=== PATIENT | male | born 1985 | race Caucasian/White ===

== ENCOUNTER 2019-06-24 19:20 | Inpatient (IN) | payer OTHER ==
[2019-06-24 21:02] VITALS: BMI 25.7
--- NOTE | 2019-06-24 21:14 | HP ---
CIWA Score Nausea/Vomitin Muscle Tremors: 4-Moderate,w/Arms Extend Anxiety: 4-Mod. Anxious/Guarded Agitation: 4-Moderately Restless Paroxysmal Sweats: 3 Orientation: 2-Disoriented Date<2 days Tacttile Disturbances: 0-None Auditory Disturbances: 2-Mild Harshness/Frighten (starled with noises) Visual Disturbances: 3-Moderate Sensitivity (bright light) Headache: 0-None Present CIWA-Ar Total Score: 25 - Admission Criteria OASAS Guidelines: Admission for Medically Managed Detox: Requires at least one of the followin. CIWA greater than 12 2. Seizures within the past 24 hours 3. Delirium tremens within the past 24 hours 4. Hallucinations within the past 24 hours 5. Acute intervention needed for co occurring medical disorder 6. Acute intervention needed for co occurring psychiatric disorder 7. Severe withdrawal that cannot be handled at a lower level of care (continued vomiting, continued diarrhea, abnormal vital signs) requiring intravenous medication and/or fluids 8. Patient presents the following: Acute intervention needed for co-occurring med or psych disorder (seen in [facility] earlier today) Admission Criteria Met: Admission criteria met Admitting History and Physical - Smoking History Smoking history: Current every day smoker Have you smoked in the past 12 months: Yes Aproximately how many cigarettes per day: 10 Admission ROS [facility] - HPI Chief Complaint: HERE FOR ALCOHOL DETOX Allergies/Adverse Reactions: Allergies Allergy/AdvReac Type Severity Reaction Status Date / Time No Known Allergies Allergy Verified 06/24/19 21:03 History of Present Illness: 33 Y.O. MALE WITH ALCOHOLISM HERE FOR DETOX. CLIENT IS REFERRED BY [facility] AFTER PRESENTING THERE WITH INTOXICATION, N/V, WEAKNESS, PALPIATATION, SOB. HE HAS SINCE BEEN STABILIZED WITH LIBRIUM AND REFERRED. CLIENT REPORTS 1 -2 WEEK BINGES. STOPS FOR ABOUT 2/3 DAYS AND REPEATS. LAST DRINK EARLIER TODAY. 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 + BLACKOUTS, + SEIZURES- LAST EPISODE 2 MONTHS AGO. CLIENT REPORTS A RECENT CLEAN TIME OF 9 MONTHS RELAPSING 10 MONTHS AGO. DENIES SI/HI/AVH. HE REPORTS HIS IS ALSO AN ALCOHOLIC WELL. SO IT HARD FOR HIM TO STOP DRINKING. LIVE HOME WITH THE FAMILY, EMPLOYED, DENIES LEGALS Exam Limitations: No Limitations - Ebola screening Have you traveled outside of the country in the last 21 days: No (N) Have you had contact with anyone from an Ebola affected area: No Do you have a fever: No - Review of Systems Constitutional: Chills, Night Sweats, Changes in sleep, Weakness EENT: reports: Blurred Vision (GLASSES), Eye Pain (PRESSURE), Ear Pain (C/O POPPING AND PRESSURE IN THE R EAR), Nose Congestion, Sinus Pressure Respiratory: reports: Shortness of Breath Cardiac: reports: No Symptoms Reported GI: reports: Diarrhea, Nausea, Poor Fluid Intake, Vomiting : reports: No Symptoms Reported Musculoskeletal: reports: Back Pain (TAIL BONE- CHRONIC) Integumentary: reports: Rash (RASH ON HANDS-CHRONIC) Neuro: reports: Headache, Seizure Endocrine: reports: No Symptoms Reported Hematology: reports: No Symptoms Reported Psychiatric: reports: Anxious, Depressed Other Systems: Reviewed and Negative Patient History - Patient Medical History Hx Anemia: No Hx Asthma: Yes Hx Chronic Obstructive Pulmonary Disease (COPD): No Hx Cancer: No Hx Cardiac Disorders: Yes (DYSRHYTHMIA) Hx Congestive Heart Failure: No Hx Hypertension: No Hx Hypercholesterolemia: Yes Hx Pacemaker: No HX Cerebrovascular Accident: No Hx Seizures: Yes (R/T ALCOHOL 04/22/19) Hx Dementia: No Hx Diabetes: No Hx Gastrointestinal Disorders: No Hx Liver Disease: Yes Hx Genitourinary Disorders: No Hx Sexually Transmitted Disorders: No Hx Renal Disease (ESRD): No Hx Thyroid Disease: No Hx Human Immunodeficiency Virus (HIV): No Hx Hepatitis C: No Hx Depression: No Hx Suicide Attempt: No Hx Bipolar Disorder: No Hx Schizophrenia: No Other Medical History: DENIES - Patient Surgical History Past Surgical History: No - PPD History Previous Implant?: Yes Documented Results: Negative w/o proof Implanted On Prior R Admission?: No PPD to be Administered?: Yes - Smoking Cessation Smoking history: Current every day smoker Have you smoked in the past 12 months: Yes Aproximately how many cigarettes per day: 10 Cigars Per Day: 0 Hx Chewing Tobacco Use: No Initiated information on smoking cessation: Yes 'Breaking Loose' booklet given: 06/24/19 - Substance & Tx. History Hx Alcohol Use: Yes Hx Substance Use: Yes Substance Use Type: Alcohol Hx Substance Use Treatment: Yes ([facility]) - Substances abused Alcohol Substance route: Oral Frequency: 3-6 times per week Amount used: 1/2 GALLON VODKA Age of first use: 22 Date of last use: 06/24/19 Admission Physical Exam [facility] - Vital Signs Vital Signs: Vital Signs - 24 hr 06/24/19 20:49 Temperature 98.0 F Pulse Rate 101 H Respiratory 18 Rate Blood Pressure 150/100 - Physical General Appearance: Yes: Mild Distress, Tremorous (FELT), Sweating, Anxious HEENTM: Yes: EOMI, Normocephalic, Normal Voice, JAKE, Pharynx Normal, Nasal Congestion, Other (DISCOLORED TEETH) Respiratory: Yes: Chest Non-Tender, Lungs Clear, Normal Breath Sounds, No Respiratory Distress, No Accessory Muscle Use Neck: Yes: No masses,lesions,Nodules, Supple, Trachea in good position Breast: Yes: Breasts Symetrical Cardiology: Yes: Regular Rhythm, S1, S2, Tachycardia Abdominal: Yes: Normal Bowel Sounds, Non Tender, Soft Genitourinary: Yes: Within Normal Limits Back: Yes: Normal Inspection Musculoskeletal: Yes: full range of Motion, Gait Steady Neurological: Yes: Alert, Motor Strength 5/5, Depressed Affect Integumentary: Yes: Warm, Other (CHRONIC DERMATITIS OF HANDS) Lymphatic: Yes: Within Normal Limits - Diagnostic (1) Alcohol dependence with withdrawal, uncomplicated Current Visit: Yes Status: Acute (2) Nicotine dependence Current Visit: Yes Status: Chronic Qualifiers: Nicotine product type: cigarettes Substance use status: uncomplicated Qualified Code(s): F17.210 - Nicotine dependence, cigarettes, uncomplicated (3) Asthma Current Visit: Yes Status: Chronic Qualifiers: Asthma severity: mild Asthma persistence: intermittent Asthma complication type: uncomplicated Qualified Code(s): J45.20 - Mild intermittent asthma, uncomplicated (4) Depressed affect Current Visit: Yes Status: Acute (5) Alcohol-induced mood disorder Current Visit: Yes Status: Suspected (6) Chronic dermatitis of hands Current Visit: Yes Status: Chronic Cleared for Admission S - Detox or Rehab [facility] Level of Care: Medically Managed Detox Regimen/Protocol: Librium Claeared for Rehab Admission: No Breathalyzer - Breathalyzer Breathalyzer: 0 Urine Drug Screen - Test Device Lot number: [id number] Expiration date: 02/18/21 - Control Is test valid?: Yes - Results Drug screen NEGATIVE: No Urine drug screen results: BZO-Benzodiazepines Inpatient Rehab Admission - Rehab Decision to Admit Inpatient rehab admission?: No
[2019-06-24] MEDS ORDERED: chlordiazePOXIDE HCL 25 MG CAPSULE PO PRN (21:21)
[2019-06-24] MEDS ORDERED: BISMUTH SUBSALICYLATE 524 MG/30 ML UD PO PRN (21:21)
[2019-06-24] MEDS ORDERED: METHOCARBAMOL 500 MG TABLET PO PRN (21:21)
[2019-06-24] MEDS ORDERED: NICOTINE POLACRILEX 2 MG GUM BUC PRN (21:21)
[2019-06-24] MEDS ORDERED: MAG HYDROX/AL HYDROX/SIMETH 30 ML UNIT-DOSE CUP PO PRN (21:21)
[2019-06-24] MEDS ORDERED: guaiFENesin 200 MG/10 ML 10 ML UNIT-DOSE CUPS PO PRN (21:21)
[2019-06-24] MEDS ORDERED: ACETAMINOPHEN 325 MG TABLET (FP) PO PRN ×2 (21:21)
[2019-06-24] MEDS ORDERED: MENTHOL/PHENOL 1 EACH UD MM PRN (21:21)
[2019-06-24] MEDS ORDERED: DICYCLOMINE HCL 10 MG CAPSULE PO PRN (21:21)
[2019-06-24] MEDS ORDERED: hydrOXYzine PAMOATE 25 MG CAPSULE (FP) PO PRN (21:21)
[2019-06-24] MEDS ORDERED: MAGNESIUM CITRATE 300 ML BOTTLE PO PRN (21:21)
[2019-06-24] MEDS ORDERED: MAGNESIUM HYDROX 2400MG/30ML ORAL SUSPENSION 30 ML CUP PO PRN (21:21)
[2019-06-24] MEDS ORDERED: ONDANSETRON *ODT* 4 MG TABLET SL PRN (21:21)
[2019-06-24] MEDS ORDERED: P-EPHED 60MG/TRIPROLIDI 2.5MG TABLET PO PRN (21:21)
[2019-06-24] MEDS ORDERED: IBUPROFEN 400 MG TABLET (FP) PO PRN (21:21)
[2019-06-24] MEDS ORDERED: AMMONIUM LACTATE 12% LOTION 225 GM BOTTLE TP PRN (21:24)
[2019-06-24] MEDS: MELATONIN 5 MG TABLETS PO PRN (22:47)
[2019-06-24] MEDS: THIAMINE HCL 100 MG TABLET (FP) PO SCH (22:47)
[2019-06-24] MEDS: chlordiazePOXIDE HCL 25 MG CAPSULE PO SCH (22:47)
[2019-06-24] MEDS: TRIAMCINOLONE ACET 0.025% OINTMENT 15 GM TUBE TP SCH (22:57)
[2019-06-25] MEDS: chlordiazePOXIDE HCL 25 MG CAPSULE PO SCH ×4 (05:24→22:00)
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
[2019-06-25 09:56] LABS: HEMATOCRIT 42.7 % (35.4-49); HEMOGLOBIN 14.7 GM/dL (11.7-16.9); MCH 30.3 pg (25.7-33.7); MCHC 34.3 g/dl (32.0-35.9); MEAN CELL VOLUME 88.1 fl (80-96); MEAN PLT VOLUME 7.9 fl (7.5-11.1); PLATELET COUNT 289 K/MM3 (134-434); RBC 4.84 M/mm3 (4.00-5.60); RDW 12.7 % (11.9-15.9); WHITE BLOOD COUNT 7.4 K/mm3 (4.0-10.0)
[2019-06-25 10:12] LABS: ALBUMIN 3.7 g/dl (3.4-5.0); BLOOD UREA NITROGEN 13.7 mg/dL (7-18); CALCIUM 9.1 mg/dL (8.5-10.1); CREATININE 0.8 mg/dL (0.55-1.3); POTASSIUM 3.8 mmol/L (3.5-5.1)
[2019-06-25] MEDS: PRENATAL VITAMINS W/ FOLIC ACID TABLET (FP) PO SCH (10:26)
[2019-06-25] MEDS: NICOTINE 14 MG/24 HOURS TOPICAL PATCH TD SCH (10:28)
[2019-06-25] MEDS: TRIAMCINOLONE ACET 0.025% OINTMENT 15 GM TUBE TP SCH ×2 (10:50→22:01)
--- NOTE | 2019-06-25 13:25 | PN ---
S CIWA - CIWA Score Nausea/Vomitin Muscle Tremors: 4-Moderate,w/Arms Extend Anxiety: 4-Mod. Anxious/Guarded Agitation: 3 Paroxysmal Sweats: 2 Orientation: 2-Disoriented Date<2 days Tacttile Disturbances: 1-Very Mild Itch/Numbness Auditory Disturbances: 0-None Visual Disturbances: 0-None Headache: 2-Mild CIWA-Ar Total Score: 20 [facility] Progress Note (SOAP) Subjective: 33 years old male admitted on 06/24/19 for alcohol withdrawal sx management treated with librium detox regimen patient tolerated well ate breakfast tolerate food and fluid well no trouble chewing swallowing fiid Objective: 06/25/19 13:27 Vital Signs Temperature 98.2 F 06/25/19 13:16 Pulse Rate 108 H 06/25/19 13:16 Respiratory Rate 18 06/25/19 13:16 Blood Pressure 150/93 06/25/19 13:16 O2 Sat by Pulse Oximetry (%) Laboratory Last Values WBC 7.4 K/mm3 (4.0-10.0) 06/25/19 08:00 RBC 4.84 M/mm3 (4.00-5.60) 06/25/19 08:00 Hgb 14.7 GM/dL (11.7-16.9) 06/25/19 08:00 Hct 42.7 % (35.4-49) 06/25/19 08:00 MCV 88.1 fl (80-96) 06/25/19 08:00 MCH 30.3 pg (25.7-33.7) 06/25/19 08:00 MCHC 34.3 g/dl (32.0-35.9) 06/25/19 08:00 RDW 12.7 % (11.9-15.9) 06/25/19 08:00 Plt Count 289 K/MM3 (134-434) 06/25/19 08:00 MPV 7.9 fl (7.5-11.1) 06/25/19 08:00 Sodium 138 mmol/L (136-145) 06/25/19 08:00 Potassium 3.8 mmol/L (3.5-5.1) 06/25/19 08:00 Chloride 103 mmol/L (98-107) 06/25/19 08:00 Carbon Dioxide 28 mmol/L (21-32) 06/25/19 08:00 Anion Gap 7 MMOL/L (8-16) L 06/25/19 08:00 BUN 13.7 mg/dL (7-18) 06/25/19 08:00 Creatinine 0.8 mg/dL (0.55-1.3) 06/25/19 08:00 Est GFR (CKD-EPI)AfAm 136.99 06/25/19 08:00 Est GFR (CKD-EPI)NonAf 118.20 06/25/19 08:00 Random Glucose 137 mg/dL (74-106) H 06/25/19 08:00 Calcium 9.1 mg/dL (8.5-10.1) 06/25/19 08:00 Total Bilirubin 1.0 mg/dL (0.2-1) 06/25/19 08:00 AST 31 U/L (15-37) 06/25/19 08:00 ALT 44 U/L (13-61) 06/25/19 08:00 Alkaline Phosphatase 91 U/L (45-117) 06/25/19 08:00 Total Protein 7.0 g/dl (6.4-8.2) 06/25/19 08:00 Albumin 3.7 g/dl (3.4-5.0) 06/25/19 08:00 RPR Titer Nonreactive (NONREACTIVE) 06/25/19 08:00 HIV 1&2 Antibody Screen Negative 06/25/19 08:00 HIV P24 Antigen Negative 06/25/19 08:00 lab noted denies history of hypertension report bp elevation during withdrawal clonidine 0.1 mg po q6h prn for bp elevation 06/25/19 13:29 Assessment: 06/25/19 13:30 continue librium detox regimen Plan: alcohol withdrawal sx
[2019-06-25] MEDS ORDERED: cloNIDine HCL 0.1 MG TABLET PO PRN (13:28)
[2019-06-25] MEDS: THIAMINE HCL 100 MG TABLET (FP) PO SCH (22:00)
[2019-06-25] MEDS: MELATONIN 5 MG TABLETS PO PRN (22:00)
[2019-06-26] MEDS ORDERED: chlordiazePOXIDE HCL 25 MG CAPSULE PO SCH (05:00)
[2019-06-26] MEDS ORDERED: LORazepam 0.5 MG TABLET PO PRN (09:55)
--- NOTE | 2019-06-26 09:58 | PN ---
[facility] CIWA - CIWA Score Nausea/Vomitin-Mild Nausea/No Vomiting Muscle Tremors: 4-Moderate,w/Arms Extend Anxiety: 4-Mod. Anxious/Guarded Agitation: 3 Paroxysmal Sweats: 2 Orientation: 0-Oriented Tacttile Disturbances: 1-Very Mild Itch/Numbness Auditory Disturbances: 0-None Visual Disturbances: 0-None Headache: 0-None Present CIWA-Ar Total Score: 15 S Progress Note (SOAP) Subjective: 33 years old male admitted on 06/24/19 for alcohol withdrawal sx management treated with librium detox regimen patient prefers ativan detox regimen discontinue librium detox regimen begin ativan detox regimen long history of hypertension begin amlodipine 5 mg po daily Objective: 06/26/19 09:59 Vital Signs Temperature 97.3 F L 06/26/19 09:22 Pulse Rate 99 H 06/26/19 09:22 Respiratory Rate 18 06/26/19 09:22 Blood Pressure 154/92 06/26/19 09:22 O2 Sat by Pulse Oximetry (%) Laboratory Last Values WBC 7.4 K/mm3 (4.0-10.0) 06/25/19 08:00 RBC 4.84 M/mm3 (4.00-5.60) 06/25/19 08:00 Hgb 14.7 GM/dL (11.7-16.9) 06/25/19 08:00 Hct 42.7 % (35.4-49) 06/25/19 08:00 MCV 88.1 fl (80-96) 06/25/19 08:00 MCH 30.3 pg (25.7-33.7) 06/25/19 08:00 MCHC 34.3 g/dl (32.0-35.9) 06/25/19 08:00 RDW 12.7 % (11.9-15.9) 06/25/19 08:00 Plt Count 289 K/MM3 (134-434) 06/25/19 08:00 MPV 7.9 fl (7.5-11.1) 06/25/19 08:00 Sodium 138 mmol/L (136-145) 06/25/19 08:00 Potassium 3.8 mmol/L (3.5-5.1) 06/25/19 08:00 Chloride 103 mmol/L (98-107) 06/25/19 08:00 Carbon Dioxide 28 mmol/L (21-32) 06/25/19 08:00 Anion Gap 7 MMOL/L (8-16) L 06/25/19 08:00 BUN 13.7 mg/dL (7-18) 06/25/19 08:00 Creatinine 0.8 mg/dL (0.55-1.3) 06/25/19 08:00 Est GFR (CKD-EPI)AfAm 136.99 06/25/19 08:00 Est GFR (CKD-EPI)NonAf 118.20 06/25/19 08:00 Random Glucose 137 mg/dL (74-106) H 06/25/19 08:00 Calcium 9.1 mg/dL (8.5-10.1) 06/25/19 08:00 Total Bilirubin 1.0 mg/dL (0.2-1) 06/25/19 08:00 AST 31 U/L (15-37) 06/25/19 08:00 ALT 44 U/L (13-61) 06/25/19 08:00 Alkaline Phosphatase 91 U/L (45-117) 06/25/19 08:00 Total Protein 7.0 g/dl (6.4-8.2) 06/25/19 08:00 Albumin 3.7 g/dl (3.4-5.0) 06/25/19 08:00 RPR Titer Nonreactive (NONREACTIVE) 06/25/19 08:00 HIV 1&2 Antibody Screen Negative 06/25/19 08:00 HIV P24 Antigen Negative 06/25/19 08:00 lab noted 06/26/19 10:03 fasting glucose Assessment: 06/26/19 10:03 alcohol withdrawal sx Plan: continue ativan detox regimen
[2019-06-26] MEDS: LORazepam 0.5 MG TABLET PO SCH ×3 (10:01→17:29)
[2019-06-26] MEDS: amLODIPine BESYLATE 5 MG TABLET (FP) PO SCH (10:23)
[2019-06-26] MEDS: PRENATAL VITAMINS W/ FOLIC ACID TABLET (FP) PO SCH (10:24)
[2019-06-26] MEDS: NICOTINE 14 MG/24 HOURS TOPICAL PATCH TD SCH (10:24)
[2019-06-26] MEDS: TRIAMCINOLONE ACET 0.025% OINTMENT 15 GM TUBE TP SCH ×2 (10:24→22:08)
[2019-06-26] MEDS: MELATONIN 5 MG TABLETS PO PRN (22:09)
[2019-06-26] MEDS: THIAMINE HCL 100 MG TABLET (FP) PO SCH (22:09)
[2019-06-27] MEDS ORDERED: chlordiazePOXIDE HCL 10 MG CAPSULE PO PRN
[2019-06-27] MEDS ORDERED: chlordiazePOXIDE HCL 10 MG CAPSULE PO SCH (05:00)
[2019-06-27] MEDS ORDERED: LORazepam 0.5 MG TABLET PO SCH (05:00)
[2019-06-27] MEDS: LORazepam 0.5 MG TABLET PO SCH ×3 (05:43→22:16)
[2019-06-27] MEDS: amLODIPine BESYLATE 5 MG TABLET (FP) PO SCH (10:08)
[2019-06-27] MEDS: NICOTINE 14 MG/24 HOURS TOPICAL PATCH TD SCH (10:09)
[2019-06-27] MEDS: PRENATAL VITAMINS W/ FOLIC ACID TABLET (FP) PO SCH (10:09)
[2019-06-27] MEDS: TRIAMCINOLONE ACET 0.025% OINTMENT 15 GM TUBE TP SCH ×2 (10:11→22:17)
--- NOTE | 2019-06-27 11:11 | PN ---
[facility] CIWA - CIWA Score Nausea/Vomitin-Mild Nausea/No Vomiting Muscle Tremors: 4-Moderate,w/Arms Extend Anxiety: 3 Agitation: 2 Paroxysmal Sweats: 1-Minimal Palms Moist Orientation: 0-Oriented Tacttile Disturbances: 0-None Auditory Disturbances: 0-None Visual Disturbances: 0-None Headache: 0-None Present CIWA-Ar Total Score: 11 S Progress Note (SOAP) Subjective: 33 years old male admitted on 06/24/19 for alcohol withdrawal sx management treated with ativan detox regimen resting on bed ate breakfast prefers to resting on bed today limited conversation with staff Objective: 06/27/19 11:08 Vital Signs Temperature 97.3 F L 06/27/19 09:07 Pulse Rate 84 06/27/19 09:07 Respiratory Rate 18 06/27/19 09:07 Blood Pressure 110/69 06/27/19 09:07 O2 Sat by Pulse Oximetry (%) Laboratory Last Values WBC 7.4 K/mm3 (4.0-10.0) 06/25/19 08:00 RBC 4.84 M/mm3 (4.00-5.60) 06/25/19 08:00 Hgb 14.7 GM/dL (11.7-16.9) 06/25/19 08:00 Hct 42.7 % (35.4-49) 06/25/19 08:00 MCV 88.1 fl (80-96) 06/25/19 08:00 MCH 30.3 pg (25.7-33.7) 06/25/19 08:00 MCHC 34.3 g/dl (32.0-35.9) 06/25/19 08:00 RDW 12.7 % (11.9-15.9) 06/25/19 08:00 Plt Count 289 K/MM3 (134-434) 06/25/19 08:00 MPV 7.9 fl (7.5-11.1) 06/25/19 08:00 Sodium 138 mmol/L (136-145) 06/25/19 08:00 Potassium 3.8 mmol/L (3.5-5.1) 06/25/19 08:00 Chloride 103 mmol/L (98-107) 06/25/19 08:00 Carbon Dioxide 28 mmol/L (21-32) 06/25/19 08:00 Anion Gap 7 MMOL/L (8-16) L 06/25/19 08:00 BUN 13.7 mg/dL (7-18) 06/25/19 08:00 Creatinine 0.8 mg/dL (0.55-1.3) 06/25/19 08:00 Est GFR (CKD-EPI)AfAm 136.99 06/25/19 08:00 Est GFR (CKD-EPI)NonAf 118.20 06/25/19 08:00 Random Glucose 137 mg/dL (74-106) H 06/25/19 08:00 Fasting Glucose 196 mg/dL (74-106) H 06/27/19 08:15 Calcium 9.1 mg/dL (8.5-10.1) 06/25/19 08:00 Total Bilirubin 1.0 mg/dL (0.2-1) 06/25/19 08:00 AST 31 U/L (15-37) 06/25/19 08:00 ALT 44 U/L (13-61) 06/25/19 08:00 Alkaline Phosphatase 91 U/L (45-117) 06/25/19 08:00 Total Protein 7.0 g/dl (6.4-8.2) 06/25/19 08:00 Albumin 3.7 g/dl (3.4-5.0) 06/25/19 08:00 RPR Titer Nonreactive (NONREACTIVE) 06/25/19 08:00 HIV 1&2 Antibody Screen Negative 06/25/19 08:00 HIV P24 Antigen Negative 06/25/19 08:00 lab noted fasting glucose higher than random glucose patient agrees to follow up with his primary care provider for glucose tolerance testing [id number] 06/27/19 11:09 06/27/19 11:10 Assessment: 06/27/19 11:10 alcohol withdrawal sx Plan: continue ativan detox regimen
[2019-06-27] MEDS: THIAMINE HCL 100 MG TABLET (FP) PO SCH (22:16)
[2019-06-27] MEDS: MELATONIN 5 MG TABLETS PO PRN (22:17)
[2019-06-28] MEDS ORDERED: chlordiazePOXIDE HCL 10 MG CAPSULE PO SCH (05:00)
[2019-06-28] MEDS: LORazepam 0.5 MG TABLET PO SCH ×2 (05:23→11:05)
--- NOTE | 2019-06-28 10:54 | PN ---
[facility] CIWA - CIWA Score Nausea/Vomitin-No Nausea/No Vomiting Muscle Tremors: 2 Anxiety: 2 Agitation: 2 Paroxysmal Sweats: 1-Minimal Palms Moist Orientation: 0-Oriented Tacttile Disturbances: 0-None Auditory Disturbances: 0-None Visual Disturbances: 0-None Headache: 0-None Present CIWA-Ar Total Score: 7 S Progress Note (SOAP) Subjective: 33 years old male admitted on 06/24/19 for alcohol withdrawal sx management treated with ativan detox regimen patient tolerated well ate breakfast discuss aftercare with staff Objective: 06/28/19 10:54 Vital Signs Temperature 98.2 F 06/28/19 09:10 Pulse Rate 108 H 06/28/19 09:10 Respiratory Rate 18 06/28/19 09:10 Blood Pressure 106/71 06/28/19 09:10 O2 Sat by Pulse Oximetry (%) Laboratory Last Values WBC 7.4 K/mm3 (4.0-10.0) 06/25/19 08:00 RBC 4.84 M/mm3 (4.00-5.60) 06/25/19 08:00 Hgb 14.7 GM/dL (11.7-16.9) 06/25/19 08:00 Hct 42.7 % (35.4-49) 06/25/19 08:00 MCV 88.1 fl (80-96) 06/25/19 08:00 MCH 30.3 pg (25.7-33.7) 06/25/19 08:00 MCHC 34.3 g/dl (32.0-35.9) 06/25/19 08:00 RDW 12.7 % (11.9-15.9) 06/25/19 08:00 Plt Count 289 K/MM3 (134-434) 06/25/19 08:00 MPV 7.9 fl (7.5-11.1) 06/25/19 08:00 Sodium 138 mmol/L (136-145) 06/25/19 08:00 Potassium 3.8 mmol/L (3.5-5.1) 06/25/19 08:00 Chloride 103 mmol/L (98-107) 06/25/19 08:00 Carbon Dioxide 28 mmol/L (21-32) 06/25/19 08:00 Anion Gap 7 MMOL/L (8-16) L 06/25/19 08:00 BUN 13.7 mg/dL (7-18) 06/25/19 08:00 Creatinine 0.8 mg/dL (0.55-1.3) 06/25/19 08:00 Est GFR (CKD-EPI)AfAm 136.99 06/25/19 08:00 Est GFR (CKD-EPI)NonAf 118.20 06/25/19 08:00 Random Glucose 137 mg/dL (74-106) H 06/25/19 08:00 Fasting Glucose 196 mg/dL (74-106) H 06/27/19 08:15 Calcium 9.1 mg/dL (8.5-10.1) 06/25/19 08:00 Total Bilirubin 1.0 mg/dL (0.2-1) 06/25/19 08:00 AST 31 U/L (15-37) 06/25/19 08:00 ALT 44 U/L (13-61) 06/25/19 08:00 Alkaline Phosphatase 91 U/L (45-117) 06/25/19 08:00 Total Protein 7.0 g/dl (6.4-8.2) 06/25/19 08:00 Albumin 3.7 g/dl (3.4-5.0) 06/25/19 08:00 RPR Titer Nonreactive (NONREACTIVE) 06/25/19 08:00 HIV 1&2 Antibody Screen Negative 06/25/19 08:00 HIV P24 Antigen Negative 06/25/19 08:00 lab noted Assessment: 06/28/19 10:55 alcohol withdrawal sx Plan: continue ativan detox regimen
[2019-06-28] MEDS: amLODIPine BESYLATE 5 MG TABLET (FP) PO SCH (11:05)
[2019-06-28] MEDS: PRENATAL VITAMINS W/ FOLIC ACID TABLET (FP) PO SCH (11:05)
[2019-06-28] MEDS: TRIAMCINOLONE ACET 0.025% OINTMENT 15 GM TUBE TP SCH ×2 (11:06→22:07)
[2019-06-28] MEDS: NICOTINE 14 MG/24 HOURS TOPICAL PATCH TD SCH (11:06)
[2019-06-28] MEDS: THIAMINE HCL 100 MG TABLET (FP) PO SCH (22:07)
[2019-06-28] MEDS: MELATONIN 5 MG TABLETS PO PRN (22:08)
[2019-06-29] MEDS ORDERED: chlordiazePOXIDE HCL 10 MG CAPSULE PO ONE (05:00)
[2019-06-29] MEDS ORDERED: LORazepam 0.5 MG TABLET PO ONE (05:00)
[2019-06-29 06:22] VITALS: BP 114/74; PULSE 92; TEMP 97.1
--- NOTE | 2019-06-29 07:48 | PN ---
S Progress Note (SOAP) Subjective: alert,no complaint Objective: 06/29/19 07:45 Vital Signs Temperature 97.1 F L 06/29/19 06:22 Pulse Rate 92 H 06/29/19 06:22 Respiratory Rate 18 06/29/19 06:22 Blood Pressure 114/74 06/29/19 06:22 O2 Sat by Pulse Oximetry (%) Laboratory Last Values WBC 7.4 K/mm3 (4.0-10.0) 06/25/19 08:00 RBC 4.84 M/mm3 (4.00-5.60) 06/25/19 08:00 Hgb 14.7 GM/dL (11.7-16.9) 06/25/19 08:00 Hct 42.7 % (35.4-49) 06/25/19 08:00 MCV 88.1 fl (80-96) 06/25/19 08:00 MCH 30.3 pg (25.7-33.7) 06/25/19 08:00 MCHC 34.3 g/dl (32.0-35.9) 06/25/19 08:00 RDW 12.7 % (11.9-15.9) 06/25/19 08:00 Plt Count 289 K/MM3 (134-434) 06/25/19 08:00 MPV 7.9 fl (7.5-11.1) 06/25/19 08:00 Sodium 138 mmol/L (136-145) 06/25/19 08:00 Potassium 3.8 mmol/L (3.5-5.1) 06/25/19 08:00 Chloride 103 mmol/L (98-107) 06/25/19 08:00 Carbon Dioxide 28 mmol/L (21-32) 06/25/19 08:00 Anion Gap 7 MMOL/L (8-16) L 06/25/19 08:00 BUN 13.7 mg/dL (7-18) 06/25/19 08:00 Creatinine 0.8 mg/dL (0.55-1.3) 06/25/19 08:00 Est GFR (CKD-EPI)AfAm 136.99 06/25/19 08:00 Est GFR (CKD-EPI)NonAf 118.20 06/25/19 08:00 Random Glucose 137 mg/dL (74-106) H 06/25/19 08:00 Fasting Glucose 196 mg/dL (74-106) H 06/27/19 08:15 Hemoglobin A1c % 6.5 % (4.2-6.3) H 06/28/19 08:20 Calcium 9.1 mg/dL (8.5-10.1) 06/25/19 08:00 Total Bilirubin 1.0 mg/dL (0.2-1) 06/25/19 08:00 AST 31 U/L (15-37) 06/25/19 08:00 ALT 44 U/L (13-61) 06/25/19 08:00 Alkaline Phosphatase 91 U/L (45-117) 06/25/19 08:00 Total Protein 7.0 g/dl (6.4-8.2) 06/25/19 08:00 Albumin 3.7 g/dl (3.4-5.0) 06/25/19 08:00 RPR Titer Nonreactive (NONREACTIVE) 06/25/19 08:00 HIV 1&2 Antibody Screen Negative 06/25/19 08:00 HIV P24 Antigen Negative 06/25/19 08:00 Assessment: 06/29/19 07:47 detox completed,no withdrawal symptom Plan: discharge today,follow up with after [facility] as arrangement
--- NOTE | 2019-06-29 07:50 | DS ---
[facility] Detox Discharge Summary Admission Date: 06/24/19 Discharge Date: 06/29/19 - History Present History: Alcohol Dependence Additional Comments: follow up with after care program as arrangement Pertinent Past History: asthma nicotine dependence dermatitis of hands - Physical Exam Results Vital Signs: Vital Signs Temperature 97.1 F L 06/29/19 06:22 Pulse Rate 92 H 06/29/19 06:22 Respiratory Rate 18 06/29/19 06:22 Blood Pressure 114/74 06/29/19 06:22 O2 Sat by Pulse Oximetry (%) Pertinent Admission Physical Exam Findings: withdrawal signs and symptom - Treatment Hospital Course: Detox Protocol Followed, Detoxed Safely, Responded well, Discharged Condition Good Patient has Accepted a Rehab Referral to: declined - Medication Discharge Medications: Ambulatory Orders NK [No Known Home Medication] 06/24/19 - Diagnosis (1) Alcohol dependence with withdrawal, uncomplicated Status: Acute (2) Asthma Status: Chronic Qualifiers: Asthma severity: mild Asthma persistence: intermittent Asthma complication type: uncomplicated Qualified Code(s): J45.20 - Mild intermittent asthma, uncomplicated (3) Nicotine dependence Status: Chronic Qualifiers: Nicotine product type: cigarettes Substance use status: uncomplicated Qualified Code(s): F17.210 - Nicotine dependence, cigarettes, uncomplicated (4) Dermatitis Status: Acute - AMA Did Patient Leave Against Medical Advice: No
== END 2019-06-29 06:33 | disposition home or self-care (01) | DRG 775 ==
LOC: YASAS 19:20 → Y3N 21:01
PROVIDERS: ADMIT Allergy & Immunology; ATTEND Allergy & Immunology
PROC: HZ2ZZZZ Detoxification Services for Substance Abuse Treatment (ICD-10-PCS; principal; 2019-06-24)
DX: F10.230 Alcohol dependence with withdrawal, uncomplicated (principal); F17.210 Nicotine dependence, cigarettes, uncomplicated; F10.24 Alcohol dependence with alcohol-induced mood disorder; F19.282 Other psychoactive substance dependence with psychoactive substance-induced sleep disorder; F41.1 Generalized anxiety disorder; F31.9 Bipolar disorder, unspecified; E78.5 Hyperlipidemia, unspecified; J45.20 Mild intermittent asthma, uncomplicated; G40.509 Epileptic seizures related to external causes, not intractable, without status epilepticus; L30.9 Dermatitis, unspecified; R45.89 Other symptoms and signs involving emotional state
CPT/HCPCS: 36415; 80053; 82947; 83036; 85027; 86593; 87389

== ENCOUNTER 2021-11-15 11:21 | Inpatient (IN) | payer OTHER ==
[2021-11-15 12:13] VITALS: BMI 26.2
[2021-11-15] MEDS ORDERED: ACETAMINOPHEN 325 MG TABLET (FP) PO PRN ×2 (14:29)
[2021-11-15] MEDS ORDERED: NICOTINE POLACRILEX 2 MG GUM BUC PRN (14:29)
[2021-11-15] MEDS ORDERED: LOPERAMIDE HCL 2 MG CAPSULE PO PRN (14:29)
[2021-11-15] MEDS ORDERED: MAGNESIUM HYDROX 2400MG/30ML ORAL SUSPENSION 30 ML CUP PO PRN (14:29)
[2021-11-15] MEDS ORDERED: IBUPROFEN 400 MG TABLET (FP) PO PRN (14:29)
[2021-11-15] MEDS ORDERED: ONDANSETRON *ODT* 4 MG TABLET SL PRN (14:29)
[2021-11-15] MEDS ORDERED: MAG HYDROX/AL HYDROX/SIMETH 30 ML UNIT-DOSE CUP PO PRN (14:29)
[2021-11-15] MEDS ORDERED: chlordiazePOXIDE HCL 25 MG CAPSULE PO PRN (14:29)
[2021-11-15] MEDS ORDERED: METHOCARBAMOL 500 MG TABLET PO PRN (14:29)
[2021-11-15] MEDS ORDERED: NICOTINE 10 MG CARTRIDGE (INHALER) IH PRN (14:29)
[2021-11-15] MEDS ORDERED: MENTHOL/PHENOL 1 EACH UD MM PRN (14:29)
[2021-11-15] MEDS ORDERED: MAGNESIUM CITRATE 300 ML BOTTLE PO PRN (14:29)
[2021-11-15] MEDS ORDERED: BISMUTH SUBSALICYLATE 524 MG/30 ML PO PRN (14:29)
[2021-11-15] MEDS: chlordiazePOXIDE HCL 25 MG CAPSULE PO SCH ×2 (17:41→22:53)
[2021-11-15] MEDS: hydrOXYzine PAMOATE 25 MG CAPSULE (FP) PO SCH ×2 (17:41→22:53)
[2021-11-15] MEDS ORDERED: MELATONIN 5 MG TABLETS PO SCH (22:00)
[2021-11-15] MEDS: THIAMINE HCL 100 MG TABLET (FP) PO SCH (22:54)
[2021-11-15] MEDS ORDERED: ALBUTEROL SO4 HFA INHALER IH PRN (23:50)
[2021-11-16 01:37] LABS: URINE APPEARANCE CLEAR; URINE BILIRUBIN NEGATIVE (NEGATIVE); URINE COLOR DK YELLOW; URINE GLUCOSE (UA) NEGATIVE (NEGATIVE); URINE KETONE 1+ (NEGATIVE); URINE LEUK ESTERASE NEGATIVE (NEGATIVE); URINE NITRITE NEGATIVE (NEGATIVE); URINE PROTEIN TRACE (NEGATIVE)
[2021-11-16] MEDS: hydrOXYzine PAMOATE 25 MG CAPSULE (FP) PO SCH ×5 (06:09→22:19)
[2021-11-16] MEDS: chlordiazePOXIDE HCL 25 MG CAPSULE PO SCH ×4 (06:09→22:19)
[2021-11-16] MEDS ORDERED: cloNIDine HCL 0.1 MG TABLET PO PRN (09:22)
[2021-11-16] MEDS: PRENATAL VITAMINS W/ FOLIC ACID TABLET (FP) PO SCH (10:22)
[2021-11-16] MEDS: NICOTINE 21 MG/24 HOURS TOPICAL PATCH TD SCH (10:22)
[2021-11-16 10:30] LABS: HEMATOCRIT 43.4 % (35.4-49); HEMOGLOBIN 15.1 GM/dL (11.7-16.9); MCH 31.8 pg (25.7-33.7); MCHC 34.8 g/dl (32.0-35.9); MEAN CELL VOLUME 91.6 fl (80-96); MEAN PLT VOLUME 7.7 fl (7.5-11.1); PLATELET COUNT 212 10^3/uL (134-434); RBC 4.74 M/mm3 (4.00-5.60); RDW 13.6 % (11.9-15.9); WHITE BLOOD COUNT 5.8 K/mm3 (4.0-10.0)
[2021-11-16 12:01] LABS: ALBUMIN 3.6 g/dl (3.4-5.0); BLOOD UREA NITROGEN 13.8 mg/dL (7-18)
[2021-11-16 12:04] LABS: CREATININE 0.9 mg/dL (0.55-1.3)
[2021-11-16 12:05] LABS: BILIRUBIN,TOTAL 1.2 mg/dL (0.2-1); TOT PROT 6.6 g/dl (6.4-8.2)
[2021-11-16] MEDS: MELATONIN 5 MG TABLETS PO SCH (22:18)
[2021-11-16] MEDS: THIAMINE HCL 100 MG TABLET (FP) PO SCH (22:19)
[2021-11-17] MEDS: hydrOXYzine PAMOATE 25 MG CAPSULE (FP) PO SCH ×2 (06:42→10:31)
[2021-11-17] MEDS: chlordiazePOXIDE HCL 25 MG CAPSULE PO SCH ×2 (06:42→10:28)
[2021-11-17] MEDS: PRENATAL VITAMINS W/ FOLIC ACID TABLET (FP) PO SCH (10:31)
[2021-11-17] MEDS: NICOTINE 21 MG/24 HOURS TOPICAL PATCH TD SCH (10:31)
[2021-11-17] MEDS ORDERED: chlordiazePOXIDE HCL 10 MG CAPSULE PO ONE (22:00)
[2021-11-17] MEDS: THIAMINE HCL 100 MG TABLET (FP) PO SCH (22:21)
[2021-11-17] MEDS: MELATONIN 5 MG TABLETS PO SCH (22:21)
[2021-11-18] MEDS ORDERED: chlordiazePOXIDE HCL 10 MG CAPSULE PO PRN
[2021-11-18] MEDS ORDERED: chlordiazePOXIDE HCL 10 MG CAPSULE PO SCH (05:00)
[2021-11-18] MEDS ORDERED: chlordiazePOXIDE 5 MG CAPSULE PO ONE (06:00)
[2021-11-18 09:19] VITALS: BP 141/98; PULSE 69; TEMP 96.9
[2021-11-18] MEDS: PRENATAL VITAMINS W/ FOLIC ACID TABLET (FP) PO SCH (10:33)
[2021-11-18] MEDS: NICOTINE 21 MG/24 HOURS TOPICAL PATCH TD SCH (10:34)
[2021-11-19] MEDS ORDERED: chlordiazePOXIDE HCL 10 MG CAPSULE PO SCH (05:00)
[2021-11-20] MEDS ORDERED: chlordiazePOXIDE HCL 10 MG CAPSULE PO ONE (05:00)
== END 2021-11-18 10:47 | disposition home or self-care (01) | DRG 775 ==
LOC: YASAS 11:21 → Y3N 15:33
PROVIDERS: ADMIT Allergy & Immunology; ATTEND Allergy & Immunology
PROC: HZ2ZZZZ Detoxification Services for Substance Abuse Treatment (ICD-10-PCS; principal; 2021-11-15)
DX: F10.230 Alcohol dependence with withdrawal, uncomplicated (principal); F10.282 Alcohol dependence with alcohol-induced sleep disorder; F10.24 Alcohol dependence with alcohol-induced mood disorder; F10.280 Alcohol dependence with alcohol-induced anxiety disorder; F17.210 Nicotine dependence, cigarettes, uncomplicated; F32.A Depression, unspecified; F41.9 Anxiety disorder, unspecified; J45.20 Mild intermittent asthma, uncomplicated; E78.5 Hyperlipidemia, unspecified; L30.9 Dermatitis, unspecified; Z86.69 Personal history of other diseases of the nervous system and sense organs
CPT/HCPCS: 36415; 80053; 81003; 85027; 86780; 87811; C9803-CS; U0003; U0005

== ENCOUNTER 2022-01-04 21:22 | Inpatient (IN) | payer OTHER ==
[2022-01-04 21:49] VITALS: BMI 25.2
[2022-01-04] MEDS ORDERED: IBUPROFEN 400 MG TABLET (FP) PO PRN (22:12)
[2022-01-04] MEDS ORDERED: BISMUTH SUBSALICYLATE 524 MG/30 ML PO PRN (22:12)
[2022-01-04] MEDS ORDERED: NICOTINE POLACRILEX 2 MG GUM BUC PRN (22:12)
[2022-01-04] MEDS ORDERED: P-EPHED 60MG/TRIPROLIDI 2.5MG TABLET PO PRN (22:12)
[2022-01-04] MEDS ORDERED: BENZOCAINE/MENTHOL (CHLORASEPTIC ) LOZENGE MM PRN (22:12)
[2022-01-04] MEDS ORDERED: ACETAMINOPHEN 325 MG TABLET (FP) PO PRN ×2 (22:12)
[2022-01-04] MEDS ORDERED: guaiFENesin 200 MG/10 ML 10 ML UNIT-DOSE CUPS PO PRN (22:12)
[2022-01-04] MEDS ORDERED: LOPERAMIDE HCL 2 MG CAPSULE PO PRN (22:12)
[2022-01-04] MEDS ORDERED: chlordiazePOXIDE HCL 25 MG CAPSULE PO ONE (22:12)
[2022-01-04] MEDS ORDERED: DICYCLOMINE HCL 10 MG CAPSULE PO PRN (22:12)
[2022-01-04] MEDS ORDERED: MAG HYDROX/AL HYDROX/SIMETH 30 ML UNIT-DOSE CUP PO PRN (22:12)
[2022-01-04] MEDS ORDERED: MAGNESIUM HYDROX 2400MG/30ML ORAL SUSPENSION 30 ML CUP PO PRN (22:12)
[2022-01-04] MEDS ORDERED: ONDANSETRON *ODT* 4 MG TABLET SL PRN (22:12)
[2022-01-04] MEDS ORDERED: MAGNESIUM CITRATE 300 ML BOTTLE PO PRN (22:12)
[2022-01-04] MEDS ORDERED: cloNIDine HCL 0.1 MG TABLET PO ONE (22:24)
[2022-01-04] MEDS ORDERED: chlordiazePOXIDE HCL 25 MG CAPSULE ONE (22:31)
[2022-01-04] MEDS ORDERED: cloNIDine HCL 0.1 MG TABLET ONE (22:31)
[2022-01-04] MEDS: chlordiazePOXIDE HCL 25 MG CAPSULE PO PRN (22:36)
[2022-01-05] MEDS: chlordiazePOXIDE HCL 25 MG CAPSULE PO SCH ×5 (01:22→22:12)
[2022-01-05] MEDS ORDERED: NICOTINE 21 MG/24 HOURS TOPICAL PATCH TD SCH (10:00)
[2022-01-05] MEDS ORDERED: PRENATAL VITAMINS W/ FOLIC ACID TABLET (FP) PO SCH (10:00)
[2022-01-05] MEDS: METHOCARBAMOL 500 MG TABLET PO PRN ×2 (10:01→21:06)
[2022-01-05 10:03] LABS: HEMATOCRIT 42.2 % (35.4-49); HEMOGLOBIN 14.5 GM/dL (11.7-16.9); MCH 31.7 pg (25.7-33.7); MCHC 34.4 g/dl (32.0-35.9); MEAN CELL VOLUME 92.1 fl (80-96); MEAN PLT VOLUME 7.8 fl (7.5-11.1); PLATELET COUNT 184 10^3/uL (134-434); RBC 4.58 M/mm3 (4.00-5.60); RDW 13.2 % (11.9-15.9); WHITE BLOOD COUNT 6.9 K/mm3 (4.0-10.0)
[2022-01-05 10:12] LABS: CALCIUM 9.6 mg/dL (8.5-10.1)
[2022-01-05 10:13] LABS: ALBUMIN 3.7 g/dl (3.4-5.0); BLOOD UREA NITROGEN 12.2 mg/dL (7-18)
[2022-01-05 10:16] LABS: CREATININE 0.8 mg/dL (0.55-1.3)
[2022-01-05 10:18] LABS: BILIRUBIN,TOTAL 0.9 mg/dL (0.2-1); TOT PROT 6.7 g/dl (6.4-8.2)
[2022-01-05] MEDS ORDERED: MELATONIN 5 MG TABLETS PO SCH (22:00)
[2022-01-05] MEDS ORDERED: THIAMINE HCL 100 MG TABLET (FP) PO SCH (22:00)
[2022-01-06] MEDS: chlordiazePOXIDE HCL 25 MG CAPSULE PO PRN (01:48)
[2022-01-06] MEDS ORDERED: chlordiazePOXIDE HCL 25 MG CAPSULE PO SCH (05:00)
[2022-01-06 06:12] VITALS: PULSE 94; TEMP 97.1
[2022-01-06 07:07] LABS: EPI CELLS 6 /uL (0-25.1); HYALINE CASTS 1 /uL (0-3.1); PH,URINE 7.5 (5.0-8.0); URINE APPEARANCE CLEAR; URINE BACTERIA 4 /uL (0-1359); URINE BILIRUBIN NEGATIVE (NEGATIVE); URINE COLOR DK YELLOW; URINE GLUCOSE (UA) NEGATIVE (NEGATIVE); URINE KETONE TRACE (NEGATIVE); URINE LEUK ESTERASE NEGATIVE (NEGATIVE); URINE NITRITE NEGATIVE (NEGATIVE); URINE PROTEIN 1+ (NEGATIVE); URINE RBC 5 /uL (0-23.9); URINE WBC 2 /uL (0-25.8)
[2022-01-06 07:37] VITALS: BP 141/99
[2022-01-06 10:07] LABS: SARS-CoV-2 NAA Not Detected (Not Detected)
[2022-01-07] MEDS ORDERED: chlordiazePOXIDE HCL 10 MG CAPSULE PO PRN
[2022-01-07] MEDS ORDERED: chlordiazePOXIDE HCL 10 MG CAPSULE PO SCH (05:00)
[2022-01-08] MEDS ORDERED: chlordiazePOXIDE HCL 10 MG CAPSULE PO SCH (05:00)
[2022-01-09] MEDS ORDERED: chlordiazePOXIDE HCL 10 MG CAPSULE PO ONE (05:00)
== END 2022-01-06 06:42 | disposition left against medical advice (07) | DRG 770 ==
LOC: YASAS 21:22 → Y6N 23:22
PROVIDERS: ADMIT Allergy & Immunology; ATTEND Allergy & Immunology
PROC: HZ2ZZZZ Detoxification Services for Substance Abuse Treatment (ICD-10-PCS; principal; 2022-01-04)
DX: F10.230 Alcohol dependence with withdrawal, uncomplicated (principal); F17.210 Nicotine dependence, cigarettes, uncomplicated; F10.24 Alcohol dependence with alcohol-induced mood disorder; F19.24 Other psychoactive substance dependence with psychoactive substance-induced mood disorder; F31.9 Bipolar disorder, unspecified; I10 Essential (primary) hypertension; E11.9 Type 2 diabetes mellitus without complications; L30.9 Dermatitis, unspecified; R63.8 Other symptoms and signs concerning food and fluid intake; Z86.69 Personal history of other diseases of the nervous system and sense organs; Z87.820 Personal history of traumatic brain injury; Z91.19 Patient's noncompliance with other medical treatment and regimen
CPT/HCPCS: 36415; 80053; 81003; 85027; 86780; C9803-CS; U0003; U0005